=== PATIENT | female | born 1960 | race African-American/Black ===

== ENCOUNTER → 2017-11-20 | Outpatient (CLI) | payer SELFPAY ==
[~2017-11-20] MED LIST: ANUSOL-HC SUPPO25 MG RC; ASPIRIN 81M81 MG/TA2 PO; CEPHALEXIN500 M1 PO; CIPRO 500MG TA500 MG PO; CORTISPORIN OTI10 ML OT; DARVON65 MG PO; FLEXERIL10 MG PO; HCTZ 25MG25 MG PO; HYDRODIURIL50 MG PO; IBU-4400 MG; IBUPROFEN 200200 MG PO; IBUPROFEN600 MG PO; K-DUR 2020 MEQ PO; LOPRESSOR 550 MG/TAB PO; LORTAB 5/500 501 TAB PO; MEDROL 4MG DOSPA4 MG PO; MELOXICAM; MOTRIN 400400 MG/TAB PO; MOTRIN 800800 MG/TAB PO; NO HOME MEDICATIONS; NORCO 325 MG-51 TAB PO; OXYCODONE; OXYCODONE HCL5 MG PO; PAIN PILL; PERCOCET 325 MG1 TA2 PO; PERCODAN 325 MG1 TA1 PO; PHENERGAN 25 TA25 MG PO; PHENERGAN W/CO120 ML PO; PHENERGAN25 MG RC; PROAIR HFA0.09 MG/AC IH; REGLAN 5MG T5 MG/TAB PO; ROXICODONE 55 MG/TAB PO; TENORMIN50 MG PO; TOPROL XL 50MG50 MG PO; ULTRAM 50MG TAB50 MG PO; ULTRAM50 MG PO; UNABLE; VICOPROFEN 7.51 TAB PO; ZESTRIL 10MG10 MG PO; ZESTRIL 5MG5 MG PO; ZITHROMAX 250M250 MG PO; ZITHROMAX Z PA250 MG PO; ZOFRAN ODT4 MG PO; [UNRECOGNIZED DRUG - REMARK]; muscle relaxer; sleeping pill
[2017-11-20 12:09] LABS: HEMATOCRIT 39.8 % (37.0-47.0); HEMOGLOBIN 12.6 g/dl (12.5-16.0)
[2017-11-20 12:17] LABS: ALBUMIN 4.4 gm/dL (3.5-5.0); BILIRUBIN,TOTAL 0.7 mg/dL (0.0-1.0); CALCIUM 9.5 mg/dL (8.4-10.2); CREATININE, serum 0.71 mg/dL (0.52-1.25); POTASSIUM 4.6 mmol/L (3.4-5.0); TOTAL PROTEIN 8.5 gm/dL (6.4-8.2)
[2017-11-20 12:46] LABS: THYROID STIMULATING HORMONE 0.636 uIU/mL (0.465-4.680)
== END ==
LOC: COL.LAB 11:00
PROVIDERS: Internal Medicine
DX: Z86.39 Personal history of other endocrine, nutritional and metabolic disease (principal)

== ENCOUNTER → 2017-12-04 | Outpatient (CLI) | payer OTHER ==
[2017-12-04 12:12] LABS: HEMATOCRIT 43.2 % (37.0-47.0); HEMOGLOBIN 13.9 g/dl (12.5-16.0); MEAN CELL VOLUME 84 fl (80.0-100.0); MEAN CORPUSCULAR HEMOGLOBIN 27 pg (27.0-31.0); MEAN CORPUSCULAR HGB CONC 32 g/dl (33.0-37.0); MEAN PLATELET VOLUME 9.6 fl (7.4-10.4); PLATELET COUNT 216 K/mm3 (130-400); RED BLOOD COUNT 5.12 M/mm3 (4.10-5.30); REDCELL DISTRIBUTION WIDTH-CV 14.9 % (11.5-14.5)
[2017-12-04 12:33] LABS: EOSINOPHIL 3 % (0-4); LYMPHOCYTE 61 % (20.0-51.0); NEUTROPHILS 22 % (42.0-75.2); PLATELET ESTIMATE NORMAL (NORMAL)
== END ==
LOC: COL.LAB 11:24
PROVIDERS: Nurse Practitioner Family
DX: R13.10 Dysphagia, unspecified (principal)

== ENCOUNTER 2017-12-26 07:40 | Day surgery (SDC) | payer OTHER ==
[~2017-12-26] VITALS: Ht 157.5 cm; Wt 64.5 kg
[2017-12-26] MEDS ORDERED: ADVIL200 MG PO (07:57)
[2017-12-26] MEDS ORDERED: PRINIVIL10 MG PO (07:57)
[2017-12-26 08:12] VITALS: BP 161/108; PULSE 75; TEMP 98.2
[2017-12-26 09:45] VITALS: BP 145/96; PULSE 84; TEMP 98.3
[2017-12-26 10:00] VITALS: BP 139/102; PULSE 80
[2017-12-26 10:15] VITALS: BP 149/105; PULSE 76
[2017-12-26 10:30] VITALS: BP 163/110; PULSE 69
[2017-12-26 18:35] VITALS: BP 141/95; PULSE 78
== END 2017-12-26 10:50 | disposition home or self-care (01) ==
LOC: SDCO 07:40
DX: K29.30 Chronic superficial gastritis without bleeding (principal); Z87.19 Personal history of other diseases of the digestive system; B18.2 Chronic viral hepatitis C; Z88.0 Allergy status to penicillin; Z80.0 Family history of malignant neoplasm of digestive organs
CPT/HCPCS: OP; J2250; J3010; J7030

== ENCOUNTER → 2018-01-23 | Outpatient (CLI) | payer SELFPAY ==
[~2018-01-23] MED LIST changes: +ADVIL200 MG PO; +PRINIVIL10 MG PO
== END ==
LOC: COL.RAD 11:28
DX: R13.11 Dysphagia, oral phase (principal)

== ENCOUNTER → 2018-05-17 | Outpatient (CLI) | payer OTHER ==
[2018-05-17 08:16] LABS: HEMATOCRIT 41.5 % (37.0-47.0); HEMOGLOBIN 13.1 g/dl (12.5-16.0); MEAN CELL VOLUME 85 fl (80.0-100.0); MEAN CORPUSCULAR HEMOGLOBIN 27 pg (27.0-31.0); MEAN CORPUSCULAR HGB CONC 32 g/dl (33.0-37.0); MEAN PLATELET VOLUME 9.7 fl (7.4-10.4); PLATELET COUNT 176 K/mm3 (130-400); RED BLOOD COUNT 4.89 M/mm3 (4.10-5.30); REDCELL DISTRIBUTION WIDTH-CV 14.2 % (11.5-14.5)
[2018-05-17 08:40] LABS: ERYTHROCYTE SEDIMENTATION RATE 4 mm/hr (0-30)
[2018-05-19 03:50] LABS: RHEUMATOID FACTOR-SCREEN <15 IU/mL (0-29)
== END ==
LOC: COL.LAB 07:39
PROVIDERS: Internal Medicine
DX: M25.549 Pain in joints of unspecified hand (principal)

== ENCOUNTER → 2018-06-21 | Outpatient (CLI) | payer OTHER | LOC: COL.RAD 12:19 | DX: M25.542 Pain in joints of left hand (principal); M25.541 Pain in joints of right hand ==

== ENCOUNTER → 2018-06-21 | Outpatient (CLI) | payer OTHER | LOC: COL.LAB 12:22 | DX: B18.2 Chronic viral hepatitis C (principal) ==

== ENCOUNTER → 2018-06-27 | Outpatient (CLI) | payer OTHER | LOC: COL.RAD 07:28 | DX: M19.041 Primary osteoarthritis, right hand (principal); M19.042 Primary osteoarthritis, left hand; M19.032 Primary osteoarthritis, left wrist; M19.031 Primary osteoarthritis, right wrist ==

== ENCOUNTER 2018-07-29 12:37 | Emergency (ER) | payer SELFPAY ==
[~2018-07-29] VITALS: Ht 157.5 cm; Wt 63.6 kg
[2018-07-29 12:52] VITALS: TEMP 98.2
[2018-07-29] MEDS ORDERED: MOBIC 7.5MG7.5 MG PO (14:59)
[2018-07-29 15:07] VITALS: BP 166/86; PULSE 88
== END 2018-07-29 15:07 | disposition home or self-care (01) ==
LOC: COL.ER 12:37
DX: M71.9 Bursopathy, unspecified (principal); I10 Essential (primary) hypertension; F17.210 Nicotine dependence, cigarettes, uncomplicated; Z86.19 Personal history of other infectious and parasitic diseases
CPT/HCPCS: J1885

== ENCOUNTER → 2018-08-08 | Outpatient (CLI) | payer OTHER ==
[~2018-08-08] MED LIST changes: +MOBIC 7.5MG7.5 MG PO
== END ==
LOC: COL.LAB 08:12
DX: B18.2 Chronic viral hepatitis C (principal)

== ENCOUNTER → 2018-10-03 | Outpatient (CLI) | payer OTHER ==
[2018-10-03 07:47] LABS: BASO % 0.7 % (0.0-2.0); EOS # 0.1 (0.0-0.7); EOS % 1.8 % (0-4.0); GRAN # 1.3 (1.4-6.5); GRAN % 30.3 % (42.2-75.2); HEMATOCRIT 40.1 % (37.0-47.0); HEMOGLOBIN 12.8 g/dl (12.5-16.0); LYMPH # 2.7 (1.2-3.4); MEAN CELL VOLUME 85 fl (80.0-100.0); MEAN CORPUSCULAR HEMOGLOBIN 27 pg (27.0-31.0); MEAN CORPUSCULAR HGB CONC 32 g/dl (33.0-37.0); MEAN PLATELET VOLUME 9.3 fl (7.4-10.4); MONO # 0.3 (0.1-0.6); PLATELET COUNT 185 K/mm3 (130-400); RED BLOOD COUNT 4.72 M/mm3 (4.10-5.30); REDCELL DISTRIBUTION WIDTH-CV 14.7 % (11.5-14.5)
[2018-10-03 07:53] LABS: ALBUMIN 4.2 gm/dL (3.5-5.0); BILIRUBIN UNCONJUGATED 0.2 mg/dL (0.0-1.1); BILIRUBIN,DIRECT 0.2 mg/dL (0.0-0.4); BILIRUBIN,TOTAL 0.5 mg/dL (0.0-1.0); TOTAL PROTEIN 8.8 gm/dL (6.4-8.2)
== END ==
LOC: COL.LAB 07:25
PROVIDERS: Internal Medicine Gastroenterology
DX: B18.2 Chronic viral hepatitis C (principal)

== ENCOUNTER → 2019-01-10 | Outpatient (CLI) | payer OTHER ==
[2019-01-10 15:53] LABS: HEPATITIS B SURFACE ANTIGEN Negative (Negative)
== END ==
LOC: COL.LAB 07:53
PROVIDERS: Internal Medicine Gastroenterology
DX: B18.2 Chronic viral hepatitis C (principal)

== ENCOUNTER → 2019-11-07 | Outpatient (CLI) | payer SELFPAY ==
[2019-11-07 21:01] LABS: BASO % 0.5 % (0.0-2.0); EOS # 0.1 (0.0-0.7); EOS % 1.4 % (0-4.0); GRAN # 2.1 (1.4-6.5); HEMOGLOBIN 11.5 g/dl (12.5-16.0); LYMPH # 3.2 (1.2-3.4); MEAN CELL VOLUME 86 fl (80.0-100.0); MEAN CORPUSCULAR HEMOGLOBIN 27 pg (27.0-31.0); MEAN CORPUSCULAR HGB CONC 32 g/dl (33.0-37.0); MEAN PLATELET VOLUME 9.9 fl (7.4-10.4); MONO # 0.3 (0.1-0.6); MONO % 5.1 % (1.7-9.3); PLATELET COUNT 243 K/mm3 (130-400); RED BLOOD COUNT 4.19 M/mm3 (4.10-5.30); REDCELL DISTRIBUTION WIDTH-CV 14.3 % (11.5-14.5)
[2019-11-07 21:10] LABS: HEMATOCRIT 36.1 % (37.0-47.0)
[2019-11-07 21:29] LABS: CHOLESTEROL RISK RATIO 4.4
[2019-11-07 22:01] LABS: TSH w REFLEX 4.41 uIU/mL (0.465-4.680)
== END ==
LOC: COL.LAB 20:33
PROVIDERS: Family Medicine
DX: Z01.89 Encounter for other specified special examinations (principal)

== ENCOUNTER 2020-08-20 17:08 | Emergency (ER) | payer SELFPAY ==
[~2020-08-20] VITALS: Ht 157.5 cm; Wt 54.5 kg
[2020-08-20] MEDS ORDERED: PEPCID40 MG PO (18:13)
[2020-08-20] MEDS ORDERED: TUSS PO (18:13)
[2020-08-20] MEDS ORDERED: ZOFRAN ODT4 MG PO (18:13)
[2020-08-20 18:15] VITALS: TEMP 97.6
[2020-08-20 18:49] VITALS: BP 154/103; PULSE 88
== END 2020-08-20 18:51 | disposition home or self-care (01) ==
LOC: COL.ER 17:08
DX: Z20.828 Contact with and (suspected) exposure to other viral communicable diseases (principal); I10 Essential (primary) hypertension; Z88.0 Allergy status to penicillin; Z87.891 Personal history of nicotine dependence

== ENCOUNTER → 2021-08-09 | Emergency (ER) | payer SELFPAY ==
[~2021-08-09] MED LIST changes: +PEPCID40 MG PO; +TUSS PO
== END ==
LOC: COL.ER 13:45
DX: R69 Illness, unspecified (principal)